=== PATIENT | male | born 1980 | race Caucasian/White ===

== ENCOUNTER → 2016-12-29 | Outpatient (CLI) | payer OTHER ==
--- NOTE | 2016-12-29 10:16 | KCIC ---
PROCEDURE Lumbar spine, three views. HISTORY Pain. FINDINGS Frontal, lateral and coned sacral views lumbar spine are obtained and compared to a prior study dated 09/29/2016. There is mild lumbar dextro curvature. There is instrumented anterior spinal fusion and interbody fusion at L5-S1. There is minimal retrolisthesis of L4 on L5. There is endplate remodeling and disc space narrowing predominately at this level. There is facet arthropathy at the lower lumbar levels. IMPRESSION 1. Stable postoperative changes of the lumbosacral junction. 2. Mild degenerative changes, not appreciably changed compared to the prior study. Electronically signed by: Kesha Patino (Dec 29, 2016 10:14:27)
== END | disposition home or self-care (01) ==
LOC: KCIC 09:17
PROVIDERS: ATTEND Neurological Surgery
DX: M51.36 Other intervertebral disc degeneration, lumbar region (principal)
CPT/HCPCS: 72100

== ENCOUNTER → 2017-04-06 | Outpatient (CLI) | payer OTHER ==
--- NOTE | 2017-04-06 10:41 | KCIC ---
LUMBAR SPINE 2-3V History: Low back pain, one-year postop Comparison: December 29, 2016 Findings: 3 views of the lumbar spine are submitted. There is mild lumbar dextroscoliosis. There again has been anterior fusion at L5-S1, unchanged and intact hardware. Vertebral body stature is preserved. There is again very mild posterior subluxation L4 relative to L5. There is again mild narrowing greater posteriorly of the L4-5 and L3-4 intervertebral disc spaces. Impression: 1. There is intact anterior fusion hardware L5-S1. 2. There is mild degenerative disc disease L3-4 and L4-5. There is mild lumbar dextroscoliosis. Electronically signed by: Angel Luis Soler MD (04/06/2017 10:38 AM)
== END | disposition home or self-care (01) ==
LOC: KCIC 09:24
PROVIDERS: ATTEND Neurological Surgery
DX: M51.36 Other intervertebral disc degeneration, lumbar region (principal); Z98.890 Other specified postprocedural states
CPT/HCPCS: 72100